=== PATIENT | male | born 1995 | race Caucasian/White ===

== ENCOUNTER 2018-06-12 12:31 | Emergency (ER) | payer MEDICAID, OTHER ==
[2018-06-12 13:24] VITALS: BP 149/100
--- NOTE | 2018-06-12 13:46 | UC ---
Skin Complaint HPI - HPI Summary HPI Summary: Patient is recovering from a viral illness, has developed area of dryness and erythema on both sides under his arms and on his love handles. he was also scratched by a cat on the right hand, his knuckles are red, left hand knuckles are also red, multiple cat scratches on arms. - History of Current Complaint Chief Complaint: UCSkin Time Seen by Provider: 06/12/18 13:26 Stated Complaint: SKIN CONCERN Hx Obtained From: Patient Onset/Duration: Sudden Onset, Lasting Days Skin Exposure Onset/Duration: Days Ago Timing: Constant Onset Severity: Mild Current Severity: Mild Pain Intensity: 4 Character: Redness, Painful Aggravating Factor(s): Nothing Alleviating Factor(s): Nothing Related History: Possible Reaction to: Animal - Allergy/Home Medications Allergies/Adverse Reactions: Allergies Allergy/AdvReac Type Severity Reaction Status Date / Time No Known Allergies Allergy Verified 06/12/18 13:20 Home Medications: Home Medications Calcium Carbonate CHEW TAB* [Tums*] 1,000 mg PO SEE INSTRUCTIONS PRN 06/12/18 [ History Confirmed 06/12/18] Famotidine [Acid Facilities Operations Technician] 10 mg PO BID PRN 06/12/18 [History Confirmed 06/12/18] PMH/Surg Hx/FS Hx/Imm Hx Previously Healthy: Yes - Surgical History Surgical History: Yes Surgery Procedure, Year, and Place: Ruptured TM Repair, ~1997 - Family History Known Family History: Positive: Hypertension - Social History Alcohol Use: Rare Substance Use Type: Cocaine, Marijuana Substance Use Comment - Amount & Last Used: Marijuana twice weekly, Cocaine once yearly Smoking Status (MU): Light Every Day Tobacco Smoker Type: Cigarettes Amount Used/How Often: <1/2 PPD Length of Time of Smoking/Using Tobacco: Since Age 15 Household Exposure Type: Cigarettes Review of Systems All Other Systems Reviewed And Are Negative: Yes Constitutional: Positive: Negative Skin: Positive: Other - multiple areas of dermatitis Eyes: Positive: Negative ENT: Positive: Negative Respiratory: Positive: Negative Cardiovascular: Positive: Negative, Palpitations Gastrointestinal: Positive: Negative Genitourinary: Positive: Negative Motor: Positive: Negative Neurovascular: Positive: Negative Musculoskeletal: Positive: Negative Neurological: Positive: Negative Psychological: Positive: Negative Is Patient Immunocompromised?: No Physical Exam Triage Information Reviewed: Yes Appearance: Well-Appearing, Well-Nourished, Pain Distress Vital Signs: Initial Vital Signs Temp 97.3 F 06/12/18 13:16 Pulse 116 06/12/18 13:16 Resp 16 06/12/18 13:16 BP 149/100 06/12/18 13:16 Pulse Ox 98 06/12/18 13:16 Vital Signs Reviewed: Yes Eye Exam: Normal ENT: Positive: Pharyngeal erythema, TMs normal Dental Exam: Normal Respiratory Exam: Normal Respiratory: Positive: Chest non-tender, Lungs clear, Normal breath sounds Cardiovascular Exam: Normal Cardiovascular: Positive: RRR, No Murmur, Pulses Normal Abdominal Exam: Normal Bowel Sounds: Positive: Present Musculoskeletal Exam: Normal Neurological Exam: Normal Psychological Exam: Normal Skin: Positive: Other - large areas of chafing and erythema under bilateral arms and love handles, erythema and dermatitis on all the knuckles, he denies trauma, has been working outside, has multiple areas of cat scratches on hands and arms, Course/Dx - Course Course Of Treatment: hx obtained, exam performed ,meds reviewed, treated for infection from cat scratches and dermatitis - Differential Diagnoses - Skin Complaint Differential Diagnoses: Cellulitis, Contact Dermatitis, Eczema, Urticaria - Diagnoses Provider Diagnosis: Cat scratch of hand, Dermatitis Discharge - Sign-Out/Discharge Documenting (check all that apply): Patient Departure All imaging exams completed and their final reports reviewed: No Studies - Discharge Plan Condition: Stable Disposition: HOME Prescriptions: DOXYcycline CAP(*) [DOXYcycline 100MG CAP(*)] 100 mg PO BID #14 cap Patient Education Materials: Contact Dermatitis (ED) Referrals: Tevin Richards MD [Primary Care Provider] - Additional Instructions: 1. use the medication as prescribed. 2. I recommend aquaphor or eucerin on your sides and knuckles multiple times a day 3. If not improving in the next few days follow up. - Billing Disposition and Condition Condition: STABLE Disposition: Home
== END 2018-06-12 13:48 | disposition home or self-care (01) ==
LOC: UCCORT 12:31
DX: S60.511A Abrasion of right hand, initial encounter (principal); S60.512A Abrasion of left hand, initial encounter; L30.9 Dermatitis, unspecified; W55.03XA Scratched by cat, initial encounter; Y92.9 Unspecified place or not applicable; F17.210 Nicotine dependence, cigarettes, uncomplicated
CPT/HCPCS: 99202; G0463

== ENCOUNTER 2019-05-27 18:03 | Emergency (ER) | payer OTHER ==
[2019-05-27 18:24] VITALS: BP 156/82
--- NOTE | 2019-05-30 15:30 | UC ---
- Progress Note Progress Note: unable to tolerate PO amox due to gi upset keflex 500 twice daily (#14) JLD Course/Dx - Diagnoses Provider Diagnoses: Strep throat Discharge ED - Sign-Out/Discharge Documenting (check all that apply): Post-Discharge Follow Up All imaging exams completed and their final reports reviewed: No Studies - Discharge Plan Condition: Good Disposition: HOME Prescriptions: Cephalexin CAP* [Keflex CAP*] 500 mg PO BID #14 cap Patient Education Materials: Strep Throat (DC) Forms: *Work Release Referrals: Tevin Richards MD [Primary Care Provider] - Additional Instructions: Increase fluids, throat lozenges, warm saltwater gargles, Tylenol every 4 hours or Motrin every 8 hours for fever or pain. Definite follow-up with your primary care provider in 3 or 4 days if no improvement. Change your toothbrush in 24 hours from now. - Billing Disposition and Condition Condition: GOOD Disposition: Home
--- NOTE | 2019-06-05 10:41 | UC ---
Throat Pain/Nasal Tk HPI - HPI Summary HPI Summary: 23-year-old male who has had a sore throat and fever for approximately 24 hours. He states he's also had some diarrhea and nausea. - History of Current Complaint Chief Complaint: UCGeneralIllness Stated Complaint: DIARRHEA SORE THROAT BODYACHES Time Seen by Provider: 05/27/19 18:22 Hx Obtained From: Patient Onset/Duration: Gradual Onset Severity: Mild Pain Intensity: 0 Pain Scale Used: 0-10 Numeric Cough: None - Allergies/Home Medications Allergies/Adverse Reactions: Allergies Allergy/AdvReac Type Severity Reaction Status Date / Time No Known Allergies Allergy Verified 05/27/19 18:24 Home Medications: Home Medications Cephalexin CAP* [Keflex CAP*] 500 mg PO BID #14 cap 05/30/19 [Rx] PMH/Surg Hx/FS Hx/Imm Hx Previously Healthy: Yes - Surgical History Surgical History: Yes Surgery Procedure, Year, and Place: Ruptured TM Repair, ~1997 - Family History Known Family History: Positive: Hypertension - Social History Lives: With Family Alcohol Use: Rare Substance Use Type: Marijuana Substance Use Comment - Amount & Last Used: Marijuana twice weekly Smoking Status (MU): Light Every Day Tobacco Smoker Type: Cigarettes Amount Used/How Often: <1/2 PPD Length of Time of Smoking/Using Tobacco: Since Age 15 Household Exposure Type: Cigarettes Review of Systems All Other Systems Reviewed And Are Negative: Yes Constitutional: Positive: Fever ENT: Positive: Sore Throat Gastrointestinal: Positive: Diarrhea - Diarrhea 2 times today. Is Patient Immunocompromised?: No Physical Exam Triage Information Reviewed: Yes Appearance: Well-Appearing, No Pain Distress, Well-Nourished Vital Signs: Initial Vital Signs Temp 99.1 F 05/27/19 18:19 Pulse 98 05/27/19 18:19 Resp 17 05/27/19 18:19 BP 156/82 05/27/19 18:19 Pulse Ox 98 05/27/19 18:19 Vital Signs Reviewed: Yes Eyes: Positive: Conjunctiva Clear ENT: Positive: Pharyngeal erythema, TMs normal, Uvula midline Neck: Positive: Supple, Nontender, Enlarged Nodes @ - Mild tonsillar lymph node enlargement. Respiratory: Positive: Lungs clear, Normal breath sounds, No respiratory distress, No accessory muscle use Cardiovascular: Positive: RRR, No Murmur, Pulses Normal, Brisk Capillary Refill Musculoskeletal Exam: Normal Neurological Exam: Normal Psychological Exam: Normal Skin Exam: Normal Throat Pain/Nasal Course/Dx - Course Course Of Treatment: The patient is comfortable here. I'm going to treated with amoxicillin for strep pharyngitis. I don't feel at this time he needs Covid testing. - Differential Dx/Diagnosis Provider Diagnosis: Strep throat Discharge ED - Sign-Out/Discharge Documenting (check all that apply): Patient Departure All imaging exams completed and their final reports reviewed: No Studies - Discharge Plan Condition: Good Disposition: HOME Prescriptions: Cephalexin CAP* [Keflex CAP*] 500 mg PO BID #14 cap Patient Education Materials: Strep Throat (DC) Forms: *Work Release Referrals: Tevin Richards MD [Primary Care Provider] - Additional Instructions: Increase fluids, throat lozenges, warm saltwater gargles, Tylenol every 4 hours or Motrin every 8 hours for fever or pain. Definite follow-up with your primary care provider in 3 or 4 days if no improvement. Change your toothbrush in 24 hours from now. - Billing Disposition and Condition Condition: GOOD Disposition: Home
== END 2019-05-27 18:51 | disposition home or self-care (01) ==
LOC: UCCORT 18:03
DX: J02.0 Streptococcal pharyngitis (principal); R19.7 Diarrhea, unspecified; R11.0 Nausea; F17.210 Nicotine dependence, cigarettes, uncomplicated
CPT/HCPCS: 87651; 99212; G0463